=== PATIENT | male | born 1995 | race Hispanic/Latino ===

== ENCOUNTER 2023-08-19 20:11 | Emergency (ER) | payer OTHER ==
[~2023-08-19] VITALS: Ht 157.5 cm; Wt 49.9 kg
[2023-08-19 20:46] LABS: BILIRUBIN,URINE SMALL mg/dL (NEGATIVE); COLOR,URINE YELLOW (YELLOW); GLUCOSE, URINE (UA) NEGATIVE (NEGATIVE); KETONES,URINE NEGATIVE (NEGATIVE); LEUKOCYTE ESTERASE ,URINE TRACE Leu/uL (NEGATIVE); NITRATE,URINE NEGATIVE (NEGATIVE); OCCULT BLOOD,URINE SMALL (NEGATIVE); PROTEIN,URINE 100 mg/dL (NEGATIVE)
[2023-08-19 20:47] LABS: ADD UA MICROSCOPIC YES; APPEARANCE,URINE TURBID (CLEAR)
[2023-08-19 20:50] LABS: RBC,URINE 51-100 /HPF (0-1); WBC,URINE TNTC /HPF (0-1)
[2023-08-19 20:51] LABS: BACTERIA,URINE Moderate /HPF (None Seen); MUCUS,URINE Few LPF (None Seen)
[2023-08-19 20:52] LABS: SQUAMOUS EPITHELIAL CELL,UR None Seen /HPF (0-2)
[2023-08-19] MEDS ORDERED: CEFTRIAXONE 1G VIAL IVPB ONE (21:30)
[2023-08-19] MEDS ORDERED: AZITHROMYCIN 250 MG TABLET PO ONE (21:30)
[2023-08-19] MEDS ORDERED: CIPR-278 PO (21:34)
[2023-08-19 21:40] VITALS: BP 118/62; PULSE 74; RESP 18; O2SAT 98
== END 2023-08-19 22:32 | disposition home or self-care (01) ==
LOC: EDH 20:11
DX: N39.0 Urinary tract infection, site not specified (principal)
CPT/HCPCS: 99284; 96365; 87088; 87797; 87486; 81001; J0696